=== PATIENT | female | born 1990 ===

== ENCOUNTER 2021-02-25 09:24 | Inpatient (IN) ==
[2021-02-25] MEDS ORDERED: EPHEDrine 50 MG/ML VIAL IVP PRN (09:50)
[2021-02-25] MEDS ORDERED: Epidural Premix (fent/bupiv) 110 ML EP ONE (09:51)
[2021-02-25] MEDS ORDERED: Epidural Premix (fent/bupiv) 110 ML EP SCH (10:00)
[2021-02-25] MEDS ORDERED: Azithromycin 500 MG in 0.9 % Sodium Chloride 250 ML IVPB PRN (10:08)
[2021-02-25] MEDS ORDERED: Lidocaine 1% 20 ML MDV INFILT PRN (10:08)
[2021-02-25] MEDS ORDERED: Metoclopramide 10 MG/2 ML VIAL IVP PRN (10:08)
[2021-02-25] MEDS ORDERED: Famotidine 20 MG/2 ML VIAL IVP PRN (10:08)
[2021-02-25] MEDS ORDERED: Ondansetron 4 MG/2 ML VIAL IVP PRN (10:08)
[2021-02-25] MEDS ORDERED: Naloxone 0.4 MG/ML INJ IVP PRN (10:08)
[2021-02-25] MEDS ORDERED: Ringers Solution, Lactated 2,000 ML ONE (10:10)
[2021-02-25] MEDS ORDERED: Penicillin G Potassium 5,000,000 UNIT in 0.9 % Sodium Chloride Mini Bag 100 ML IVPB ONE (10:10)
[2021-02-25] MEDS ORDERED: Ringers Solution, Lactated 1,000 ML IVC SCH (10:15)
[2021-02-25 10:33] LABS: Basophils % 0.3 %; Eosinophils % 0.5 %; Hematocrit 30.4 % (35.3-44.9); Hemoglobin 9.8 g/dL (11.5-15.4); Immature Granulocytes % 1.5 % (0-4); Lymphocytes # 1.6 K/mcL (0.6-4.6); Lymphocytes % 18.1 %; Mean Corpuscular HGB Conc 32.2 g/dL (31.6-35.5); Mean Corpuscular Hemoglobin 27.1 pg (28.0-33.3); Mean Platelet Volume 11.7 fL (9.4-12.4); Monocytes # 0.7 K/mcL (0.0-1.3); Monocytes % 7.8 %; Neutrophils # 6.2 K/mcL (1.6-8.9); Platelet Count 144 K/mcL (140-400); Red Blood Count 3.62 M/mcL (3.82-4.97); Red Cell Distribution Width 13.2 % (11.5-14.5); Segmented Neutrophils % 71.8 %; White Blood Count 8.7 K/mcL (4.3-11.1)
[2021-02-25 11:19] LABS: Amphetamine Screen,Urine Negative ng/mL (Cutoff=1000); Barbiturate Screen,Urine Negative ng/mL (Cutoff=200); Benzodiazepines Screen,Urine Negative ng/mL (Cutoff=200); Cannabinoid Screen,Urine Positive ng/mL (Cutoff = 50); Cocaine Screen,Urine Negative ng/mL (Cutoff= 300); Opiate Screen,Urine Negative ng/mL (Cutoff=300); Phencyclidine Screen,Urine Negative ng/mL (Cutoff=25)
[2021-02-25] MEDS ORDERED: Oxytocin 20 units/ LR 1000 mL 20 UNIT/1,000 ML BAG IVC SCH ×2 (13:30→20:00)
[2021-02-25] MEDS ORDERED: Penicillin G Potassium 2,500,000 UNIT in 0.9 % Sodium Chloride 100 ML IVPB SCH (14:00)
[2021-02-25] MEDS ORDERED: Lanolin 7 G OINT...G. TP PRN (19:59)
[2021-02-25] MEDS ORDERED: Measles/Mumps/Rubella Vacc 0.5 ML VIAL SQ PRN (19:59)
[2021-02-25] MEDS ORDERED: Benzocaine/Menthol 56 GM AEROSOL SPRAY TP PRN (19:59)
[2021-02-25] MEDS: Ibuprofen 600 MG TABLET PO PRN (20:29)
[2021-02-25] MEDS: Acetaminophen 325 MG TABLET PO PRN (22:48)
[2021-02-26] MEDS: Ibuprofen 600 MG TABLET PO PRN ×2 (03:14→08:59)
[2021-02-26 03:57] VITALS: O2SAT 98
[2021-02-26 07:57] VITALS: BP 116/73; PULSE 70; TEMP 98.1
[2021-02-26] MEDS: Acetaminophen 325 MG TABLET PO PRN (08:59)
[2021-02-26] MEDS ORDERED: Prenatal Vit/FA 1 EACH TABLET PO SCH (09:00)
== END 2021-02-26 13:27 | disposition home or self-care (01) | DRG 560 ==
LOC: 1NENULAB 09:24 → 1NENUOBS 21:45
PROVIDERS: ADMIT Advanced Practice Midwife; ATTEND Advanced Practice Midwife